=== PATIENT | female | born 1980 | race Caucasian/White ===

== ENCOUNTER 2024-01-05 01:23 | Emergency (ER) | payer BC, SELFPAY ==
[2024-01-05 02:00] VITALS: BP 101/66; PULSE 86; RESP 16; RESP 20; TEMP 38; O2SAT 97; O2SAT 99
--- NOTE | 2024-01-05 03:14 | ED_ITS ---
HPI - General Adult General Chief complaint: Fever Stated complaint: fever, sore neck Time Seen by Provider: 01/05/24 03:00 Source: patient Mode of arrival: ambulatory Limitations: no limitations History of Present Illness HPI narrative: 43-year-old female presents with a 2 day history of body aches, fever starting yesterday. Took Tylenol and ibuprofen intermittently yesterday with good improvement in her symptoms. She became concerned over the last few hours that she started to develop pain in specifically the right levator scapulae area and goals her symptoms and was told that this could be a sign of meningitis with neck pain. She does not have any meningeal signs, no photophobia, no stiffness in the neck. There is no nausea, no vomiting. No history of prior meningitis. No focal neurological changes, headache. Her children had strep throat last week. She has no other localizing symptoms of infection like skin infections, cellulitis, dysuria or productive cough. She has had some diffuse body aches. Has not done any home COVID testing or other viral testing. Fevers have been present at home. No injury. No pertinent travel. Denies long-term medical problems or prescriptions. No allergies. Nonsmoker. ROS notable for the generalized musculoskeletal symptoms as described above, otherwise denies times 12 systems. Exam Const: Vital Signs, click to edit/add: Vital Signs - 24 hr 01/05/24 02:00 Temperature 100.4 F H Pulse Rate [Left P ulse Oximeter] 86 Respiratory Rate 20 Blood Pressure [Ri ght Upper Arm] 101/66 Pulse Oximetry 97 Oxygen Delivery Me thod Room Air Documenting provider has reviewed patient's vital signs: yes Common normals: no apparent distress General appearance: cooperative, comfortable and well kempt HENMT: Common normals: normocephalic, TM's normal bilaterally and moist oral mucous membranes Head and scalp: normocephalic Tympanic membrane: TM's normal bilaterally Other: Slight postnasal drip and mild erythema to the tonsillar pillars but no exudate or swelling. Tongue and mucosa are otherwise normal. Eye: Common normals: conjunctivae normal General eye: normal appearance of both eyes Conjunctiva: conjunctiva(e) normal Neck & C-Spine: Common normals: full ROM and no lymphadenopathy General: normal visual inspection Resp: Common normals: normal respiratory effort, no use of accessory muscles and clear to auscultation bilaterally Effort & inspection: able to speak in complete sentences Auscultation: clear to auscultation bilaterally Cardio: Common normals: regular rate, regular rhythm, S1 normal heart sound, S2 normal heart sound and no murmurs Rate: regular rate Rhythm: regular rhythm Heart sounds: S1 normal and S2 normal Back & Pelvis: Other: Kernig and Brudzinski signs are negative. Tenderness to palpation of levator scapulae muscle on right side only. This is isolated and there are not any other associated meningeal signs. Extremity: Common normals: normal to inspection and normal capillary refill Neuro: Speech: speech normal Motor exam: no movement abnormalities noted Psych: Common normals: speech normal Appearance: well kempt Activity/motor behavior: appropriate eye contact Speech: normal speech Mood and affect: euthymic mood Skin: Common normals: no rashes or lesions noted General skin exam: no rashes or lesions noted Course Course ED Course: 43-year-old female with fever and isolated muscular tenderness and no other signs of meningeal irritation or encephalitis, meningitis or other severe infection. Counseled patient on physical exam findings, do not recommend lumbar puncture. She was understanding of my rationale an explanation. Counseled patient that I think we should do some basic testing for viral illnesses and strep because of her recent exposure. I would not want her to reinfect the children. Swab for strep, flu, RSV and COVID performed. Will give 600 ibuprofen p.o. x1. If swabs are negative anticipate that this is likely from some other viral infection and would recommend conservative management, Tylenol, ibuprofen and watchful waiting. Reevaluation(s) Time of Reevaluation #1: 04:20 Reevaluation #1: Patient feeling a little better after the ibuprofen. Viral and strep testing is all negative, results related to her. She does ask me if she should reschedule her wisdom tooth extraction scheduled for later today, I do recommend that she reschedule this because of her fever. Counseled on continuing Tylenol and ibuprofen. I would recommend that she make a follow-up appointment with the primary care provider if her symptoms are not improving 7 days from now. If she is still febrile, I would recommend urinalysis, mono testing, tick-borne illness testing and or other investigations. Alarm symptoms that would warrant repeat ED presentation were reviewed, written instructions provided. She verbalized understanding and agreement. Vital Signs Vital signs: Initial Vital Signs Temperature 100.4 F H 01/05/24 02:00 Temperature Source Temporal Artery Scan 01/05/24 02:00 Pulse Rate 86 01/05/24 02:00 Respiratory Rate 20 01/05/24 02:00 Blood Pressure 101/66 01/05/24 02:00 Blood Pressure Mean 77 01/05/24 02:00 Blood Pressure Position Sitting 01/05/24 02:00 Pulse Oximetry 97 01/05/24 02:00 Oxygen Delivery Method Room Air 01/05/24 02:00 Vital Signs Temperature 100.4 F H 01/05/24 02:00 Pulse Rate 86 01/05/24 02:00 Respiratory Rate 20 01/05/24 02:00 Blood Pressure 101/66 01/05/24 02:00 Pulse Oximetry 97 01/05/24 02:00 Oxygen Delivery Method Room Air 01/05/24 02:00 Temperature 100.4 F H 01/05/24 02:00 Pulse Rate 86 01/05/24 02:00 Respiratory Rate 20 01/05/24 02:00 Blood Pressure 101/66 01/05/24 02:00 Pulse Oximetry 97 01/05/24 02:00 Oxygen Delivery Method Room Air 01/05/24 02:00 Medical Decision Making Lab Data Lab results reviewed: Yes I reviewed the patient's lab results Lab results narrative: Negative, as expected Labs: Lab Results 01/05/24 Range/Units 03:20 SARS-CoV-2 (PCR) Negative SARS-CoV-2 (Negative) Influenza Type A (PCR) Negative PCR FLU A (Negative) Influenza Type B (PCR) Negative PCR FLU B (Negative) RSV (PCR) Negative PCR RSV (Negative) Group A Strep DNA NOT DETECTED (Not Detectd) Discharge Plan Discharge Clinical Impression: Fever of unknown origin Patient Disposition: Home, Self-Care Condition: Stable Instructions: Fever in Adults (ED) Additional Instructions: But as we discussed, your swabs for strep, influenza, RSV and COVID are negative. I suspect your fever is caused by a different virus. There are several circulating right now. I would recommend that you continue using Tylenol 1000 mg every 6 hours and or ibuprofen 600 mg every 6 hours as needed for fever, body aches and general discomfort. If her fever lasts 10 days, I would recommend a follow-up with her primary care provider to look for mono, tick borne illness these, have a urine sample collected and or look at other tests. Most of the time, the fever lasts 4-5 days and resolved on its own. If you have severe headache, neurological changes, light sensitivity and or worsening of your next symptoms, please come back to the emergency department for further testing. I would recommend that you reschedule your wisdom tooth extraction for at least 7 days from now. Activity Level: Activity as Tolerated Discharge Diet: Regular Follow Up/Referrals: Provider,Not a Local [Primary Care Provider] - Stand Alone Forms: [employer] Info Instructions
[2024-01-05 03:55] LABS: Strep A DNA Probe* NOT DETECTED (Not Detectd)
[2024-01-05 04:00] VITALS: TEMP 37.6
[2024-01-05 04:07] LABS: PCR FLU A Negative PCR FLU A (Negative); PCR FLU B Negative PCR FLU B (Negative); PCR RSV Negative PCR RSV (Negative); SARS PCR* Negative SARS-CoV-2 (Negative)
== END 2024-01-05 07:22 | disposition home or self-care (01) ==
PROVIDERS: Emergency Provider Family Medicine
DX: R50.9 Fever, unspecified (principal)
CPT/HCPCS: 87631; 87651; 99282; 99283

== ENCOUNTER 2024-09-26 14:00 | Outpatient (RCR) | payer BC, SELFPAY | END 2024-10-10 14:41 | disposition home or self-care (01) | PROVIDERS: Visit Provider Family Medicine | DX: M72.2 Plantar fascial fibromatosis (principal); Z74.09 Other reduced mobility; M62.81 Muscle weakness (generalized); Z51.89 Encounter for other specified aftercare | CPT/HCPCS: 97110; 97140; 97161 ==